=== PATIENT | female | born 1950 | race Asian ===

== ENCOUNTER 2023-04-23 08:59 | Inpatient (IN) | payer SELFPAY ==
[~2023-04-23] VITALS: Ht 165.1 cm; Wt 63.1 kg
[2023-04-23 09:43] LABS: Basophils # (auto) 0 10 ^3/uL (0-0.2); Basophils % (auto) 0.5 % (0.0-2.0); Eosinophils # (auto) 0 10 ^3/uL (0-0.8); Eosinophils % (auto) 0.6 % (0.0-7.0); Hemoglobin 13.8 g/dL (12.2-16.2); Lymphocytes % (auto) 40.7 % (10.0-50.0); Mean Corpuscular Hemoglobin 32.8 pg (28.0-32.0); Mean Corpuscular Hgb Conc. 34.6 g/dL (32.0-36.0); Mean Corpuscular Volume 94.8 fL (80.0-100.0); Monocytes # (auto) 0.4 10 ^3/uL (0-1.3); Monocytes % (auto) 5.3 % (0.0-12.0); Neutrophils # (auto) 3.9 10 ^3/uL (1.6-8.6); Neutrophils % (auto) 52.9 % (37.0-80.0); Red Blood Cells 4.22 10^6/uL (4.0-5.20); Red Cell Distribution Width 13.6 % (11.8-14.3); White Blood Cell 7.4 10^3/uL (4.4-10.8)
[2023-04-23 10:13] LABS: Alanine Aminotransferase 25 U/L (7-40); Albumin 4.4 g/dL (3.2-4.8); Alkaline Phosphatase 83 U/L (46-116); Anion Gap 7 (5-15); Aspartate Aminotransferase 24 U/L (13-40); BUN/Creatinine Ratio 14.4 (10.0-20.0); Blood Urea Nitrogen 16 mg/dL (9-23); Calcium 9.1 mg/dL (8.7-10.4); Carbon Dioxide 28 mmol/L (20-30); Chloride 103 mmol/L (98-107); Glucose 142 mg/dL (74-106); Potassium 4.7 mmol/L (3.5-5.1); Sodium 138 mmol/L (136-145)
[2023-04-23 10:14] LABS: Bilirubin, Total 0.8 mg/dL (0.2-1.0); Total Protein 8.1 g/dL (5.7-8.2)
[2023-04-23 10:20] VITALS: PULSE 84; RESP 16; O2SAT 94
[2023-04-23 10:43] LABS: Urine Bacteria FEW /hpf (None Seen); Urine Blood Negative /uL (Negative); Urine Clarity Clear (Clear); Urine Protein, UAD Negative (Negative); Urine Specific Gravity 1.011 (1.001-1.035); Urine Urobilinogen Normal (Negative); Urine WBC 1 /hpf (0 - 5); Urine pH 7.5 (5.0-8.0)
[2023-04-23 10:45] LABS: Urine Color Yellow (Yellow)
[2023-04-23] MEDS ORDERED: hydrALAZINE HCL 20 MG/ML VL IV PRN (13:45)
[2023-04-23] MEDS ORDERED: ACETAMINOPHEN 325 MG TAB PO PRN (13:45)
[2023-04-23] MEDS ORDERED: MORPHINE SULFATE INJ 2 MG/ml SYRG IV PRN (13:45)
[2023-04-23] MEDS ORDERED: LISINOPRIL 5 MG TAB PO ONE (13:45)
[2023-04-23] MEDS ORDERED: NITROGLYCERIN 0.4 MG SL TAB SL PRN (13:45)
[2023-04-23] MEDS ORDERED: ASPirin 81 mg TAB PO ONE (14:00)
[2023-04-23] MEDS: SODIUM CHLORIDE 0.9% 1,000 ML IV SCH (14:11)
[2023-04-23 16:21] LABS: Triglycerides 146 mg/dL (< 150)
[2023-04-23 16:22] LABS: LDL Cholesterol 135 mg/dL (< 100)
[2023-04-23 16:23] LABS: Cholesterol 208 mg/dL (< 200); HDL Cholesterol 54 mg/dL (40-59)
[2023-04-23 19:25] VITALS: PULSE 74; RESP 17; O2SAT 94
[2023-04-23] MEDS ORDERED: ATORVASTATIN 20 MG TAB PO SCH (22:00)
[2023-04-23 23:50] VITALS: BP 146/91; PULSE 65; RESP 20; TEMP 98; O2SAT 95
[2023-04-24] VITALS (7 sets, daily range): BP systolic 126–171; BP diastolic 74–91; PULSE 64–81; RESP 18–20; TEMP 97.6–98.9; O2SAT 92–97
[2023-04-24] MEDS ORDERED: OMEP20TA PO (01:21)
[2023-04-24] MEDS ORDERED: BUPR150T18 PO (02:00)
[2023-04-24] MEDS: SODIUM CHLORIDE 0.9% 1,000 ML IV SCH (06:13)
[2023-04-24 06:50] LABS: Basophils # (auto) 0 10 ^3/uL (0-0.2); Basophils % (auto) 0.4 % (0.0-2.0); Eosinophils # (auto) 0.1 10 ^3/uL (0-0.8); Eosinophils % (auto) 0.9 % (0.0-7.0); Hematocrit 39.1 % (36.0-46.0); Hemoglobin 13.6 g/dL (12.2-16.2); Lymphocytes # (auto) 2.8 10 ^3/uL (0.4-5.4); Lymphocytes % (auto) 36.3 % (10.0-50.0); Mean Corpuscular Hgb Conc. 34.7 g/dL (32.0-36.0); Mean Corpuscular Volume 95.2 fL (80.0-100.0); Monocytes # (auto) 0.5 10 ^3/uL (0-1.3); Monocytes % (auto) 6.9 % (0.0-12.0); Neutrophils # (auto) 4.3 10 ^3/uL (1.6-8.6); Neutrophils % (auto) 55.5 % (37.0-80.0); Nucleated Red Blood Cells % 0.1 %; Red Blood Cells 4.11 10^6/uL (4.0-5.20); Red Cell Distribution Width 13.5 % (11.8-14.3); White Blood Cell 7.8 10^3/uL (4.4-10.8)
[2023-04-24 06:56] LABS: Alanine Aminotransferase 22 U/L (7-40); Alkaline Phosphatase 75 U/L (46-116); Anion Gap 6 (5-15); BUN/Creatinine Ratio 9.7 (10.0-20.0); Blood Urea Nitrogen 9 mg/dL (9-23); Calcium 8.9 mg/dL (8.7-10.4); Carbon Dioxide 27 mmol/L (20-30); Chloride 106 mmol/L (98-107); Glucose 103 mg/dL (74-106); Potassium 3.9 mmol/L (3.5-5.1); Sodium 139 mmol/L (136-145)
[2023-04-24 06:57] LABS: Aspartate Aminotransferase 30 U/L (13-40)
[2023-04-24 06:58] LABS: Bilirubin, Total 1.2 mg/dL (0.2-1.0); Total Protein 7.6 g/dL (5.7-8.2)
[2023-04-24] MEDS: ASPirin 81 mg TAB PO SCH (09:14)
[2023-04-24] MEDS: ENOXAPARIN SOD 40 MG/0.4 ML SYRINGE SC SCH (09:15)
[2023-04-24] MEDS ORDERED: LISINOPRIL 5 MG TAB PO SCH (10:00)
[2023-04-24 10:59] LABS: Folate (Folic Acid) > 24.00 ng/mL (>5.38)
[2023-04-24] MEDS: ATORVASTATIN 20 MG TAB PO SCH ×2 (13:45→21:14)
[2023-04-25] VITALS (7 sets, daily range): BP systolic 134–162; BP diastolic 71–79; PULSE 65–80; RESP 17–22; TEMP 97.8–98.2; O2SAT 94–97
[2023-04-25] MEDS: SODIUM CHLORIDE 0.9% 1,000 ML IV SCH (02:28)
[2023-04-25 02:56] LABS: Amphetamine Screen, Urine Neg (NEGATIVE); Barbiturate Scree,Urine Neg (NEGATIVE); Benzodiazephine Screen, Urine Neg (NEGATIVE); Cannabinoid Screen, Urine Neg (NEGATIVE); Cocaine Screen, Urine Neg (NEGATIVE); Opiate Scree,Urine Neg (NEGATIVE); Phencyclidine Screen, Urine Neg (NEGATIVE)
[2023-04-25 06:10] LABS: Basophils # (auto) 0 10 ^3/uL (0-0.2); Basophils % (auto) 0.7 % (0.0-2.0); Eosinophils # (auto) 0.1 10 ^3/uL (0-0.8); Eosinophils % (auto) 1.3 % (0.0-7.0); Hematocrit 40.8 % (36.0-46.0); Hemoglobin 14.1 g/dL (12.2-16.2); Lymphocytes # (auto) 2.1 10 ^3/uL (0.4-5.4); Lymphocytes % (auto) 28.9 % (10.0-50.0); Mean Corpuscular Hemoglobin 32.9 pg (28.0-32.0); Mean Corpuscular Hgb Conc. 34.6 g/dL (32.0-36.0); Mean Corpuscular Volume 94.9 fL (80.0-100.0); Monocytes # (auto) 0.4 10 ^3/uL (0-1.3); Monocytes % (auto) 5.7 % (0.0-12.0); Neutrophils # (auto) 4.7 10 ^3/uL (1.6-8.6); Neutrophils % (auto) 63.4 % (37.0-80.0); Red Cell Distribution Width 13.5 % (11.8-14.3); White Blood Cell 7.3 10^3/uL (4.4-10.8)
[2023-04-25 06:19] LABS: Chloride 107 mmol/L (98-107); Potassium 3.9 mmol/L (3.5-5.1); Sodium 139 mmol/L (136-145)
[2023-04-25 06:20] LABS: Anion Gap 5 (5-15); Carbon Dioxide 27 mmol/L (20-30)
[2023-04-25 06:25] LABS: BUN/Creatinine Ratio 8.6 (10.0-20.0); Blood Urea Nitrogen 8 mg/dL (9-23); Glucose 124 mg/dL (74-106)
[2023-04-25] MEDS ORDERED: LISINOPRIL 5 MG TAB PO SCH (10:00)
[2023-04-25] MEDS: ASPirin 81 mg TAB PO SCH (10:37)
[2023-04-25] MEDS: ENOXAPARIN SOD 40 MG/0.4 ML SYRINGE SC SCH (10:39)
[2023-04-25] MEDS ORDERED: PANTOPRAZOLE 40 MG TAB PO ONE (13:00)
[2023-04-25] MEDS: guaiFENesin-DM 100/10mg/5ml SYR PO PRN ×2 (13:41→22:51)
[2023-04-25] MEDS ORDERED: ATORVASTATIN 20 MG TAB PO SCH (22:00)
[2023-04-26 05:00] VITALS: BP 143/83; PULSE 63; RESP 17; TEMP 98; O2SAT 95
[2023-04-26 06:23] LABS: Chloride 106 mmol/L (98-107); Potassium 4.1 mmol/L (3.5-5.1); Sodium 140 mmol/L (136-145)
[2023-04-26 06:24] LABS: Anion Gap 5 (5-15); Carbon Dioxide 29 mmol/L (20-30)
[2023-04-26 06:25] LABS: Calcium 8.9 mg/dL (8.5-10.1)
[2023-04-26 06:28] LABS: Basophils # (auto) 0 10 ^3/uL (0-0.2); Basophils % (auto) 0.7 % (0.0-2.0); Eosinophils # (auto) 0.1 10 ^3/uL (0-0.8); Eosinophils % (auto) 1.5 % (0.0-7.0); Hematocrit 38.6 % (36.0-46.0); Hemoglobin 13.3 g/dL (12.2-16.2); Lymphocytes # (auto) 2.5 10 ^3/uL (0.4-5.4); Lymphocytes % (auto) 36.7 % (10.0-50.0); Mean Corpuscular Hemoglobin 32.7 pg (28.0-32.0); Mean Corpuscular Hgb Conc. 34.4 g/dL (32.0-36.0); Monocytes # (auto) 0.5 10 ^3/uL (0-1.3); Monocytes % (auto) 7.2 % (0.0-12.0); Neutrophils # (auto) 3.7 10 ^3/uL (1.6-8.6); Neutrophils % (auto) 53.9 % (37.0-80.0); Nucleated Red Blood Cells % 0.1 %; Red Blood Cells 4.06 10^6/uL (4.0-5.20); Red Cell Distribution Width 13.4 % (11.8-14.3); White Blood Cell 6.8 10^3/uL (4.4-10.8)
[2023-04-26 06:29] LABS: Glucose 113 mg/dL (74-106)
[2023-04-26 06:30] LABS: BUN/Creatinine Ratio 10.3 (10.0-20.0); Blood Urea Nitrogen 9 mg/dL (9-23)
[2023-04-26 08:00] VITALS: PULSE 61; PULSE 71; RESP 18; O2SAT 95
[2023-04-26] MEDS ORDERED: PANTOPRAZOLE 40 MG TAB PO SCH (10:00)
[2023-04-26] MEDS ORDERED: LOSARTAN POTASSIUM 50 MG TAB PO SCH (10:00)
[2023-04-26] MEDS: ASPirin 81 mg TAB PO SCH (10:11)
[2023-04-26] MEDS: guaiFENesin-DM 100/10mg/5ml SYR PO PRN (10:11)
[2023-04-26] MEDS: ENOXAPARIN SOD 40 MG/0.4 ML SYRINGE SC SCH (10:11)
[2023-04-26] MEDS ORDERED: LOSA50TA46 PO (10:15)
[2023-04-26] MEDS ORDERED: ASPI-325 PO (10:15)
[2023-04-26] MEDS ORDERED: PANT40TA2 PO (10:15)
[2023-04-26] MEDS ORDERED: ATO40T PO (10:15)
[2023-04-26 12:30] VITALS: BP 150/83; PULSE 72; RESP 16; TEMP 97.9; O2SAT 97
== END 2023-04-26 16:45 | disposition home or self-care (01) | DRG 304 ==
LOC: EDBD 08:59 → ER 08:59 → TELE 13:38 → TELE-CENTR 23:21
PROVIDERS: ADMIT Internal Medicine; ATTEND Student in an Organized Health Care Education/Training Program
DX: I16.1 Hypertensive emergency (principal); I63.9 Cerebral infarction, unspecified; I10 Essential (primary) hypertension; R05.3 Chronic cough; R10.13 Epigastric pain; R09.82 Postnasal drip; K21.9 Gastro-esophageal reflux disease without esophagitis; Z79.899 Other long term (current) drug therapy; Z98.51 Tubal ligation status
CPT/HCPCS: 36415; 70450; 70551; 71045; 80048; 80053; 80061; 80307; 81001; 82607; 82746; 84443; 84484; 85025; 93005; 93306; 93886; 97110; 97116; 97163; 97530; G0378